=== PATIENT | female | born 1990 | race Caucasian/White ===

== ENCOUNTER 2016-07-12 18:56 | Emergency (ER) | payer OTHER ==
[~2016-07-12] VITALS: Ht 157.5 cm; Wt 83.9 kg
[2016-07-12 19:03] VITALS: BP 128/75
--- NOTE | 2016-07-12 19:33 | ED INFLUENZA/URI COMPLAINT ---
History of Present Illness General Chief Complaint: General Adult Stated Complaint: PT IS HAVING HARD TIME BREATHING SPO 97 Source: patient, old records Exam Limitations: no limitations Vital Signs & Intake/Output Vital Signs & Intake/Output Vital Signs Date Time Temp Pulse Resp B/P B/P Pulse O2 O2 Flow FiO2 Mean Ox Delivery Rate 07/12 2014 90 16 99 Room Air 07/12 1941 Room Air 07/12 1903 97.1 88 18 128/75 98 Room Air ED Intake and Output 07/13 0000 07/12 1200 Intake Total Output Total Balance Patient 185 lb Weight Allergies Coded Allergies: No Known Allergies (07/12/16) Reconcile Medications Albuterol Sulfate (Proair Hfa) 90 MCG HFA.AER.AD 2 PUF INH AD PRN BRONCHITIS (Reported) Azithromycin (Zithromax) 250 MG TABLET 1 DP PO AD BRONCHITIS 2 the first day followed by 1 for days 2-5 Codeine Phosphate/Guaifenesi (Guaifen-Codeine 100-10 MG/5 Ml) 10 MG-100 MG/5 ML LIQUID 10 ML PO Q6HR PRN COUGH Levonorgestrel (Mirena) 20 MCG/24 HOUR (5 YEARS) IUD CONTROL (Reported) Methylprednisolone. (Medrol) 4 MG TAB.DS.PK 1 DP PO AD BRONCHITIS 6 on day 1 then reduce by one tablet daily until gone Triage Note: PT COMPLAINS OF NON PRODUCTIVE COUGH SINCE YESTERDAY AND FEELING LIKE SHE CANT CATCHER HER BREATH, O2 SAT 98 % ON RA. PT ALSO COMPLAINS THAT SHE IS ACHEY ALL OVER. AFEBRILE Triage Nurses Notes Reviewed? yes Onset: Abrupt Duration: day(s): (1), constant Timing: recent history Severity: mild, moderate Severity Numbers: 5 Prior Episodes/Possible Cause: occassional episodes No Modifying Factors: none Associated Symptoms: cough, wheezing : No Patient currently breastfeeds: No HPI: 26-year-old female with history of bronchitis who is an active smoker presents to ER complaining of a one-day history of nonproductive cough since yesterday associated with wheezing. She has been using her nebulizer treatments and inhalers without improvement. no chest pain, no hemoptysis no abdominal pain nausea vomiting diarrhea no rhinorrhea congestion or sore throat. (ANUEL HENRIQUEZ,ANNAMARIA) Past History Travel History Traveled to [place] past 21 day No Medical History Any Pertinent Medical History? 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 No (ANNAMARIA BULLOCK) Review of Systems Review of Systems Constitutional: Reports: see HPI. All Other Systems: Reviewed and Negative Comments Review of systems: See HPI, All other systems negative. Constitutional, no chills no fever, no malaise HEENT: No visual changes no sore throat no congestion, no ear pain Cardiovascular: No chest pain , no palpitation , no orthopnea Skin: no rashes, no change in skin Respiratory: No dyspnea cough no sputum no hemoptysis GI: No nausea no vomiting, no diarrhea, no bloating/constipation : No dysuria No hematuria, Muscle skeletal: No joint pain, no joint swelling, no back pain, no neck pain, Neurologic: No numbnessno headache Psych: No stress no depression,. Heme/endocrine: No bruising no bleeding Immunology: No lymphadenopathy (ANNAMARIA BULLOCK) Physical Exam Physical Exam General Appearance: well developed/nourished, alert, awake Ears, Nose, Throat: normal ENT inspection Comments: Well-developed well-nourished patient in no apparent distress. Head/Face: Atraumatic, no maxillary/frontal sinus tenderness, no facial swelling Eyes: PERRL, EOMI, no conjunctival injection. No nystagmus Ear:External auditory canal and Tympanic membranes clear, no erythema, no FB. Nose: atraumatic.Normal inspection: No bleeding Throat: Moist mucous membranes.Pharynx normal. No pharyngeal erythema/exudate seen. No stridor/drooling or assymetry. No swelling or edema. Neck: Supple, no lymphadenopathy, FROM Back: FROM Cardiovascular: Regular rate and rhythms no murmurs rubs Respiratory: Chest nontender.There were no bony deformities, no asymmetry. No respiratory distress. Patient speaking in full complete sentences. Wheezing bilaterally no rhonchi rales Extremities: full range of motion Neuro: awake, alert, and oriented to person, place and time. There were no obvious focal neurologic abnormalities. Skin: Warm & dry;No appreciable rash on exposed skin Psych: Mood affect normal, normal memory normal judgment. Core Measures Severe Sepsis Present: No Septic Shock Present: No (ANNAMARIA BULLOCK) Progress Differential Diagnosis: otitis, pneumonia, sinusitis, BRONCHITIS, ASTHMA Plan of Care: Current Medications Sig/Blair Start time Last Medication Dose Stop Time Status Admin Albuterol Sulfate 3 ML ONCE ONE 07/12 1944 UNVr 07/12 (Proventil) 07/12 Ipratropium [place] 2.5 ML ONCE ONE 07/12 1944 UNVr 07/12 (Atrovent) 07/12 Prednisone 60 MG ONCE ONE 07/12 1944 UNVr 07/12 1945 PT APPEARS IN NAD, duoneb ordered 2004 On repeat evaluation after DuoNeb lungs sounds have improved I discussed with the patient at length all of their results. I had an extensive conversation regarding need for close follow up with their primary care physician this week as well as return precautions. I answered all of their questions, they feel comfortable with the plan and follow-up care. I discussed the medications that they will receive with the patient. I gave them signs and symptoms that could indicate an adverse reaction. I have advised them to limit their activities until they can see how they respond to the medication. smoking cessation discussed with patient (ANNAMARIA BULLOCK) Initial ED EKG: none (ANNAMARIA BULLOCK) Departure Departure Time of Disposition: 2005 Disposition: HOME OR SELF CARE Condition: Stable Clinical Impression Primary Impression: Bronchitis Referrals: PATIENT HAS NO PRIMARY CARE DR (PCP/Family) Additional Instructions: Medrol Dosepak as directed continue using her inhalers at home as needed. Robitussin with codeine for cough use caution as this will make you drowsy. Z- Andre as directed. stop smoking Departure Forms: Customer Survey General Discharge Information Prescriptions: Current Visit Scripts Methylprednisolone. (Medrol) 1 DP PO AD #1 DP 6 on day 1 then reduce by one tablet daily until gone Azithromycin (Zithromax) 1 DP PO AD #6 TAB 2 the first day followed by 1 for days 2-5 Codeine Phosphate/Guaifenesi (Guaifen-Codeine 100-10 MG/5 Ml) 10 ML PO Q6HR PRN COUGH #200 ML (ANNAMARIA BULLOCK) PA/PASSENGER BOOKING CLERK Co-Sign Statement Statement: ED Attending supervision documentation- [] I saw and evaluated the patient. I have also reviewed all the pertinent lab results and diagnostic results. I agree with the findings and the plan of care as documented in the PA's/PASSENGER BOOKING CLERK's documentation. [x] I have reviewed the ED Record and agree with the PA's/PASSENGER BOOKING CLERK's documentation. [] Additions or exceptions (if any) to the PAs/PASSENGER BOOKING CLERK's note and plan are summarized below: [] (YAJAIRA VALENTINO,MANOJ Hartmann)
[2016-07-12] MEDS ORDERED: MIRENA1 EACH (19:51)
[2016-07-12] MEDS ORDERED: PROAIR HFA8.5 GM INH (19:51)
[2016-07-12] MEDS ORDERED: ZITHROMAX250 M2 PO (20:07)
[2016-07-12] MEDS ORDERED: MEDROL4 M2 PO (20:07)
[2016-07-12] MEDS ORDERED: GUAIFEN-CODEIN118 M1 PO (20:07)
== END 2016-07-12 20:15 ==
LOC: ERH 18:56
DX: J40 Bronchitis, not specified as acute or chronic (principal); Z72.0 Tobacco use
CPT/HCPCS: 1263